=== PATIENT | male | born 1980 | race African-American/Black ===

== ENCOUNTER 2017-07-26 10:05 | Emergency (ER) | payer MEDICAID ==
[~2017-07-26] VITALS: Ht 180.3 cm; Wt 72.6 kg
--- NOTE | 2017-07-26 10:40 | Emergency Room Report ---
History of Present Illness General Chief Complaint: Skin Rash/Abscess Source: Patient Present Illness HPI Patient present with complaints of erythema to the right upper thigh region Patient reports that 3-4 days ago he at noticed an area of what seemed to be a pimple Later on the area had enlarged He squeezed the area and there was some discharge in the center point was open with some minimal drainage however given the erythema and the discomfort patient presents for further eval Denies any fevers or chills denies any pain to the joint of the hip Patient is HIV positive however reports that he is undetectable with his viral load Allergies: Coded Allergies: PENICILLINS (Verified Allergy, Unknown, 07/26/17) Patient History Past Medical History: see triage record Pertinent Family History: none Reviewed Nursing Documentation: PMH: Agreed, PSxH: Agreed Nursing Documentation-PMH Past Medical History: No History, Except For Hx Cardiac Problems: No - HIV Review of Systems All Other Systems: negative except mentioned in HPI Physical Exam Vital Signs Date Time Temp Pulse Resp B/P (MAP) Pulse Ox O2 Delivery O2 Flow Rate FiO2 07/26/17 10:11 97.3 95 16 123/80 97 Room Air Sp02 EP Interpretation: reviewed, normal General Appearance: well appearing, no apparent distress Head: normocephalic, atraumatic Eyes: bilateral eye PERRL, bilateral eye EOMI ENT: hearing grossly normal, normal pharynx, TMs + canals normal, uvula midline Neck: full range of motion, supple, no meningismus, no bony tend Respiratory: lungs clear Cardiovascular #1: regular rate, rhythm, no edema Gastrointestinal: soft, no mass Musculoskeletal: normal inspection Neurologic: alert, oriented x3 Skin: other - 3 x 3 cm area of erythema associated with some fluctuance lateral upper thigh, the hip joint itself is freely mobile without any limitation or discomfort, the center point is open with yellowish purulent discharge, there is no other tracking or flaring of the erythema Lymphatic: no adenopathy Medical Decision Making Diagnostic Impression: Primary Impression: Abscess ER Course Given the appearance size and palpation of the area I felt that incision would be the most appropriate next step with drainage of the area 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 and does not want to have that performed At this time he was agreeable to having IV with IV antibiotics initially Patient reports that there is any worsening of the area he will return The area does appear open and there is drainage which is more appropriate And the patient will have initial outpatient attempt He is aware that was recommended for the area to be incised as it can lead to worsening symptoms worsening infection and more difficulty treating the area Last Vital Signs Date Time Temp Pulse Resp B/P (MAP) Pulse Ox O2 Delivery O2 Flow Rate FiO2 07/26/17 10:11 97.3 95 16 123/80 97 Room Air Status: improved Disposition: HOME, SELF-CARE Condition: Improved Scripts Acetaminophen With Codeine (T#3) (TYLENOL #3 TAB*) Y Tab 1 TAB ORAL Q8H Y for For Pain, #10 TAB Prov: DANIEL PALM D.O. 07/26/17 Ibuprofen* (MOTRIN*) 600 Mg Tablet 600 MG ORAL Q8H Y for For Pain, #20 TAB 0 Refills Prov: DANIEL PALM D.O. 07/26/17 Clindamycin Hcl (CLINDAMYCIN HCL) 300 Mg Capsule 300 MG ORAL THREE TIMES A DAY, #30 CAP Prov: DANIEL PALM D.O. 07/26/17 Additional Instructions: Patient is provided with the discharge instructions notified to follow up with primary doctor in the next 2-3 days otherwise return to the er with any worsening symptoms. Please note that this report is being documented using [employer] technology. This can lead to erroneous entry secondary to incorrect interpretation by the dictating instrument. DANIEL PALM D.O. Jul 26, 2017 10:40
[2017-07-26] MEDS ORDERED: Ketorolac 30mg Inj IV ONE (10:45)
[2017-07-26] MEDS ORDERED: Clindamycin 600mg 50 ML IVPB ONE (10:45)
[2017-07-26] MEDS ORDERED: CLINDAMYCIN HC300 MG ORAL (11:05)
[2017-07-26] MEDS ORDERED: IBUPROFEN600 MG ORAL (11:05)
[2017-07-26] MEDS ORDERED: ACETAMINOPHEN-1 EAC1 ORAL (11:05)
[2017-07-26 11:37] VITALS: BP 122/82
== END 2017-07-26 11:37 | disposition home or self-care (01) ==
LOC: EMR 10:34
DX: L02.415 Cutaneous abscess of right lower limb (principal); Z88.0 Allergy status to penicillin
CPT/HCPCS: 96374; 96375; 99284; J1885; J7040; S0077